=== PATIENT | male | born 1985 | race African-American/Black ===

== ENCOUNTER 2017-04-23 15:59 | Inpatient (IN) | payer MEDICAID, OTHER ==
[2017-04-23] VITALS (9 sets, daily range): BP systolic 112–138; BP diastolic 71–88; PULSE 73–92; RESP 16–20; TEMP 98.3–98.5; O2SAT 97–100
[~2017-04-23] VITALS: Ht 200.7 cm; Wt 137.5 kg
--- NOTE | 2017-04-23 16:35 | PD ---
HPI Chief Complaint: Chest Pain Time Seen by Provider: 16:10 Travel History International Travel<30 days: No Contact w/Intl Traveler<30days: No Traveled to known affect area: No History of Present Illness HPI 31 year old male presents to the emergency department for evaluation of left- sided chest pain that radiates down the left arm. Patient reports significant history including MO 5, 3 open heart surgeries, cervical fusion, chronic lymphedema of the right lower extremity. He also reports history DVT to the right lower extremity and seizures. He has history of Marfan syndrome. He is also legally blind in left eye. Apparently, once EMS arrived for evaluation of this left-sided chest pain, he then proceeded to have 2 seizures. Patient has history of epilepsy and has multiple seizures. Patient states his orthopedics pediatric physician is in [place]. Patient states the pain is pressure and sharp. He currently rates the pain 10/10. He states he cannot take aspirin and is allergic to it. He is not on anticoagulants due to seizures. Patient does state the swelling to the right lower extremity is slightly worse than normal. Patient was last MO was February 2014. He does state he had a cardiac catheterization 3 months ago at [facility]. I'll attempt to obtain the record. PFSH Past Medical History Cardiomyopathy: Yes Diminished Hearing: No Medical other: Yes (MARFANS SYNDROME) Myocardial Infarction: Yes (X5 WITH CARDIAC ARREST X2) Seizures: Yes Tetanus Vaccination: < 5 Years Influenza Vaccination: Yes Past Surgical History Cardiac Surgery: Yes (PACEMAKER AICD AROTIC VALVE ) Coronary Artery Bypass Graft: Yes (CABG X3 SX) Pacemaker: Yes Social History Alcohol Use: No Tobacco Use: No Substance Use: No Allergies-Medications (Allergen,Severity, Reaction): Coded Allergies: Iodinated Contrast- Oral and IV Dye (Verified Allergy, Severe, 04/23/17) aspirin (Verified Allergy, Severe, 04/23/17) midazolam (Verified Allergy, Severe, 04/23/17) Reported Meds & Prescriptions Reported Meds & Active Scripts Active Reported Depakote ER (Divalproex Sodium) 500 Mg Kirill 2,000 Mg PO BID Sotalol (Sotalol HCl) 120 Mg Tab 120 Mg PO BID Prilosec (Omeprazole Magnesium) 20 Mg Tab 1 Tab PO DAILY Neurontin (Gabapentin) 400 Mg Cap 400 Mg PO BID Lasix (Furosemide) 40 Mg Tab 40 Mg PO BID Flovent Hfa 10.6 GM Inh (Fluticasone Propionate) 44 Mcg/Act Inh 2 Puff INH BID Use daily at the same time. Vitamin D2 (Ergocalciferol) 2,000 Unit Tab 5,000 Units PO DAILY Cymbalta DR (Duloxetine HCl) 60 Mg Capdr 60 Mg PO DAILY Ventolin Hfa 18 GM Inh (Albuterol Sulfate) 90 Mcg/Act Aer 2 Puff INH Q4H PRN Review of Systems Except as stated in HPI: all other systems reviewed are Neg Physical Exam Narrative GENERAL: Well-nourished, well-developed male patient, afebrile. SKIN: Focused skin assessment warm/dry. Large scar noted to mid chest. HEAD: Normocephalic. Atraumatic. EYES: No scleral icterus. No injection or drainage. NECK: Supple, trachea midline. No JVD or lymphadenopathy. CARDIOVASCULAR: Regular rate and rhythm without murmurs, gallops, or rubs. RESPIRATORY: Breath sounds equal bilaterally. No accessory muscle use. Lungs sounds are diminished throughout to auscultation. GASTROINTESTINAL: Abdomen soft, non-tender, nondistended. MUSCULOSKELETAL: No cyanosis. Chronic lymphedema noted to right lower extremity. BACK: Nontender without obvious deformity. No CVA tenderness. Data Data Last Documented VS Vital Signs Date Time Temp Pulse Resp B/P (MAP) Pulse Ox O2 Delivery O2 Flow Rate FiO2 04/23/17 18:00 77 20 132/76 (94) 98 Room Air 04/23/17 16:15 98.3 Orders Orders Electrocardiogram (04/23/17 16:20) B-Type Natriuretic Peptide (04/23/17 16:20) Ckmb (Isoenzyme) Profile (04/23/17 16:20) Complete Blood Count With Diff (04/23/17 16:20) Comprehensive Metabolic Panel (04/23/17 16:20) Magnesium (Mg) (04/23/17 16:20) Prothrombin Time / Inr (Pt) (04/23/17 16:20) Act Partial Throm Time (Ptt) (04/23/17 16:20) Troponin I (04/23/17 16:20) Lipase (04/23/17 16:20) Chest, Single Ap (04/23/17 16:20) Ecg Monitoring (04/23/17 16:20) Bilateral Bp Monitoring (04/23/17 16:20) Iv Access Insert/Monitor (04/23/17 16:20) Oximetry (04/23/17 16:20) Oxygen Administration (04/23/17 16:20) Valproic Acid (Depakene) (04/23/17 16:20) Us Leg Venous Doppler (04/23/17 ) Morphine Inj (Morphine Inj) (04/23/17 16:45) Ondansetron Inj (Zofran Inj) (04/23/17 16:45) Admit Order (Ed Use Only) (04/23/17 18:08) Labs Laboratory Tests Test 04/23/17 16:45 White Blood Count 9.8 TH/MM3 Red Blood Count 4.73 MIL/MM3 Hemoglobin 14.8 GM/DL Hematocrit 42.9 % Mean Corpuscular Volume 90.7 FL Mean Corpuscular Hemoglobin 31.4 PG Mean Corpuscular Hemoglobin Concent 34.6 % Red Cell Distribution Width 14.0 % Platelet Count 252 TH/MM3 Mean Platelet Volume 7.5 FL Neutrophils (%) (Auto) 72.2 % Lymphocytes (%) (Auto) 18.9 % Monocytes (%) (Auto) 7.6 % Eosinophils (%) (Auto) 0.7 % Basophils (%) (Auto) 0.6 % Neutrophils # (Auto) 7.1 TH/MM3 Lymphocytes # (Auto) 1.8 TH/MM3 Monocytes # (Auto) 0.7 TH/MM3 Eosinophils # (Auto) 0.1 TH/MM3 Basophils # (Auto) 0.1 TH/MM3 CBC Comment DIFF FINAL Differential Comment Prothrombin Time 10.7 SEC Prothromb Time International Ratio 1.0 RATIO Activated Partial Thromboplast Time 28.3 SEC Blood Urea Nitrogen 14 MG/DL Creatinine 0.85 MG/DL Random Glucose 93 MG/DL Total Protein 7.6 GM/DL Albumin 3.7 GM/DL Calcium Level 9.2 MG/DL Magnesium Level 2.1 MG/DL Alkaline Phosphatase 72 U/L Aspartate Amino Transf (AST/SGOT) 14 U/L Alanine Aminotransferase (ALT/SGPT) 17 U/L Total Bilirubin 0.3 MG/DL Sodium Level 138 MEQ/L Potassium Level 3.6 MEQ/L Chloride Level 105 MEQ/L Carbon Dioxide Level 25.4 MEQ/L Anion Gap 8 MEQ/L Estimat Glomerular Filtration Rate 106 ML/MIN Total Creatine Kinase 75 U/L Troponin I LESS THAN 0.02 NG/ML B-Type Natriuretic Peptide 40 PG/ML Lipase 192 U/L Valproic Acid (Depakene) Level 7 MCG/ML MDM Medical Decision Making Medical Screen Exam Complete: Yes Emergency Medical Condition: Yes Medical Record Reviewed: Yes Interpretation(s) chest x-ray - CONCLUSION: 1. No acute cardiopulmonary disease. Us right leg - no evidence of DVT Differential Diagnosis ACS versus pneumonia versus pneumothorax versus DVT versus chest wall pain versus epilepsy versus electrolyte abnormality Narrative Course 31-year-old male presents to the emergency department via EMS for evaluation of left-sided chest pain. He also had seizure 2 when EMS arrived. He is now alert, oriented times person and place time. He has significant cardiac history. EKG shows sinus rhythm, heart rate 83, no acute ST changes. CBC, CMP , lipase, BNP, magnesium, CK, troponin, PTT, PT/INR, Depakote level, chest x- ray are ordered and pending. US of the right lower extremity is ordered and pending. Patient is given morphine 4 mg IV, Zofran 4 g IV for pain. CBC shows no acute abnormality. CMP shows no acute abnormality. Lipase is 192. Magnesium is 2.1. CK is 75. Troponin is less than 0.02. Coags are unremarkable. Depakote level is 7. Chest x-ray shows no acute cardiopulmonary disease. Venous doppler US of the right lower extremity is negative for DVT. Patient will be admitted for serial cardiac enzymes. Hospitalist is paged for admission. Dr. Leal accepted admission. Diagnosis Primary Impression: Chest pain Qualified Codes: R07.9 - Chest pain, unspecified Admitting Information Admitting Physician Requests: Ernestina Marin Apr 23, 2017 16:35
[2017-04-23] MEDS ORDERED: MORPHINE SULFATE 4 MG/ML INJ IV PUSH ONE ×2 (16:45→18:30)
[2017-04-23] MEDS ORDERED: ONDANSETRON HCL 4 MG/2 ML VIAL IV PUSH ONE (16:45)
--- NOTE | 2017-04-23 16:52 | RADRPT ---
EXAM DATE/TIME: 04/23/2017 16:38 [facility] COMPARISON: No previous studies available for comparison. INDICATIONS : Chest pain. MEDICAL HISTORY : Myocardial infarction. Malignancy. Marfans SURGICAL HISTORY : CABG. Pacemaker. ENCOUNTER: Initial ACUITY: 2 days PAIN SCORE: 6/10 LOCATION: Bilateral chest FINDINGS: The cardiac silhouette is enlarged in transverse diameter. A defibrillator device is in place via a l eft sided approach. Median sternotomy wires are present. A prosthetic aortic valve is in place. The l ungs are free of acute parenchymal opacity. No effusions are identified. CONCLUSION: 1. No acute cardiopulmonary disease. Marlon Soliz MD on April 23, 2017 at 16:49 Board Certified Radiologist. This report was verified electronically.
[2017-04-23 16:57] LABS: AUTOMATED NEUTROPHIL # 7.1 TH/MM3 (1.8-7.7); BASOPHIL # 0.1 TH/MM3 (0-0.2); BASOPHIL % 0.6 % (0.0-2.0); EOSINOPHIL # 0.1 TH/MM3 (0-0.4); EOSINOPHIL % 0.7 % (0.0-4.0); HEMATOCRIT 42.9 % (39.0-51.0); HEMO FLAGS DIFF FINAL; LYMPH % 18.9 % (9.0-44.0); LYMPHOCYTE # 1.8 TH/MM3 (1.0-4.8); MEAN CELL VOLUME 90.7 FL (80.0-100.0); MEAN CORPUSCULAR HEMOGLOBIN 31.4 PG (27.0-34.0); MEAN CORPUSCULAR HGB CONC 34.6 % (32.0-36.0); MONO % 7.6 % (0.0-8.0); NEUT % 72.2 % (16.0-70.0); PLATELET COUNT 252 TH/MM3 (150-450); RED BLOOD COUNT 4.73 MIL/MM3 (4.50-5.90); WHITE BLOOD COUNT 9.8 TH/MM3 (4.0-11.0)
[2017-04-23 17:08] LABS: APTT (PATIENT) 28.3 SEC (24.3-30.1); PROTHROMBIN TIME - PATIENT 10.7 SEC (9.8-11.6)
[2017-04-23 17:19] LABS: ALT (GPT) 17 U/L (12-78)
[2017-04-23 17:20] LABS: ANION GAP 8 MEQ/L (5-15); AST (GOT) 14 U/L (15-37); BICARBONATE 25.4 MEQ/L (21.0-32.0); BLOOD UREA NITROGEN 14 MG/DL (7-18); CHLORIDE 105 MEQ/L (98-107); GLOMERULAR FILTRATION RATE 106 ML/MIN (>89); MAGNESIUM 2.1 MG/DL (1.5-2.5); POTASSIUM 3.6 MEQ/L (3.5-5.1); SODIUM (NA) 138 MEQ/L (136-145)
[2017-04-23 17:22] LABS: ALKALINE PHOSPHATASE 72 U/L (45-117); TOTAL BILIRUBIN ADULT 0.3 MG/DL (0.2-1.0)
[2017-04-23 17:26] LABS: CREATINE KINASE 75 U/L (39-308)
--- NOTE | 2017-04-23 17:41 | RADRPT ---
EXAM DATE/TIME: 04/23/2017 17:07 [facility] COMPARISON: No previous studies available for comparison. INDICATIONS : Right leg swelling and pain. MEDICAL HISTORY : Myocardial infarction. Seizures. Marfan's syndrome. SURGICAL HISTORY : CABG Pacemaker. C-spine fusion. ENCOUNTER: Initial ACUITY: 1 day PAIN SCORE: 6/10 LOCATION: Right leg. TECHNIQUE: Venous ultrasound of the leg was performed from the inguinal ligament to the proximal calf. Real-kat e, color Doppler and spectral tracing, compression and augmentation techniques were used. FINDINGS: There is normal compressibility of the deep venous system from the inguinal region to the proximal ca lf. No echogenic clot is seen in the lumen of the common femoral, femoral, popliteal, and posterior tibial veins. There is a normal response of the venous system to proximal and distal augmentation an d respiration. CONCLUSION: 1. No evidence of deep venous thrombosis. Marlon Soliz MD on April 23, 2017 at 17:39 Board Certified Radiologist. This report was verified electronically.
[2017-04-23] MEDS ORDERED: PRIL20TA2 PO (18:07)
[2017-04-23] MEDS ORDERED: SOTA120T PO (18:07)
[2017-04-23] MEDS ORDERED: FURO1TAB60 PO (18:07)
[2017-04-23] MEDS ORDERED: NEUR400C PO (18:07)
[2017-04-23] MEDS ORDERED: FLUTI44I INH (18:07)
[2017-04-23] MEDS ORDERED: ERGO2000 PO (18:07)
[2017-04-23] MEDS ORDERED: CYMB60CA PO (18:07)
[2017-04-23] MEDS ORDERED: DEPA500T3 PO (18:07)
[2017-04-23] MEDS ORDERED: VENTAER INH (18:07)
[2017-04-23] MEDS ORDERED: oxyCODONE/ACETAMINOPHEN 5 MG/325 MG TAB PO PRN (19:00)
[2017-04-23] MEDS ORDERED: NALOXONE HCL 0.4 MG/ML AMP IV PUSH PRN (19:00)
[2017-04-23] MEDS ORDERED: ALPRAZolam 0.25 MG TAB PO PRN (19:00)
[2017-04-23] MEDS ORDERED: NITROGLYCERIN 0.4 MG SL 25 TABS/BTL SL PRN (19:00)
[2017-04-23] MEDS ORDERED: SENNOSIDES 8.6 MG TAB PO PRN (19:00)
[2017-04-23] MEDS ORDERED: PROCHLORPERAZINE 25 MG SUPP RECTAL PRN (19:00)
[2017-04-23] MEDS ORDERED: LACTULOSE SYRUP 20 GM/30 ML CUP PO PRN (19:00)
[2017-04-23] MEDS ORDERED: BISACODYL 10 MG SUPP RECTAL PRN (19:00)
[2017-04-23] MEDS ORDERED: MORPHINE SULFATE 4 MG/ML INJ IV PUSH PRN ×2 (19:00)
[2017-04-23] MEDS ORDERED: SODIUM CHLORIDE 0.9% FLUSH 10 ML FLUSH IV FLUSH PRN ×2 (19:00)
[2017-04-23] MEDS ORDERED: ACETAMINOPHEN 325 MG TAB PO PRN ×2 (19:00)
[2017-04-23] MEDS ORDERED: ONDANSETRON HCL 4 MG/2 ML VIAL IVP PRN (19:00)
[2017-04-23] MEDS ORDERED: MAGNESIUM HYDROXIDE SUSP 30 ML CUP PO PRN (19:00)
[2017-04-23] MEDS ORDERED: ALBUTEROL SULFATE 90 MCG/ACT HFA 18 GM INHALER INH PRN (19:15)
--- NOTE | 2017-04-23 19:21 | HHI.HP ---
[facility] [place] No Primary Care Physician Admission Diagnosis chest pain Diagnoses: (1) Chest pain Diagnosis: Principal (2) Seizure disorder Diagnosis: Secondary Chief Complaint: Chest pain Travel History International Travel<30 Days: No Contact w/Intl Traveler <30 Da: No Traveled to Known Affected Are: No History of Present Illness Patient is a 31-year-old gentleman. He presented to the emergency room for evaluation of left-sided chest pain that radiated down his left arm. Patient reported significant history including MD 5, 3 open heart surgeries, cervical fusion, chronic lymphedema of the right lower extremity. He also reports history of DVT to the right lower extremity and seizure disorder. Patient also has history of Marfan syndrome. He is also legally blind in his left eye. Once EMS arrived for evaluation of his left-sided chest pain he then proceeded to have 2 seizures. Has a history of epilepsy and has multiple seizures. 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 Patient states the pain is a pressure and sharp. It was 10 out of 10 states he cannot take aspirin and is allergic to not on any anticoagulants due to seizure.. Patient states the swelling to the right lower extremity is worse than normal. Patient states his last myocardial infarction was February 2014. Does state he had a cardiac catheterization [address] [facility] Review of Systems Constitutional: DENIES: Diaphoretic episodes, Fatigue, Fever, Weight gain, Weight loss Endocrine: DENIES: Heat/cold intolerance, Polydipsia, Polyuria, Polyphagia Eyes: COMPLAINS OF: Vision loss, DENIES: Diplopia, Eye inflammation, Eye pain Ears, nose, mouth, throat: DENIES: Tinnitus, Hearing loss, Vertigo, Nasal discharge Respiratory: DENIES: Apneas, Cough, Snoring, Wheezing Cardiovascular: COMPLAINS OF: Chest pain, Lower Extremity Edema, DENIES: Palpitations, Syncope, Dyspnea on Exertion, PND Gastrointestinal: DENIES: Abdominal pain, Black stools, Bloody stools, Constipation Genitourinary: DENIES: Sexual dysfunction, Urinary frequency, Urinary incontinence Musculoskeletal: DENIES: Joint pain, Muscle aches, Stiffness, Joint Swelling Integumentary: DENIES: Abnormal pigmentation, Nail changes Hematologic/lymphatic: DENIES: Bruising, Lymphadenopathy Immunologic/allergic: DENIES: Eczema, Urticaria Neurologic: COMPLAINS OF: Seizures, DENIES: Abnormal gait, Headache, Localized weakness, Paresthesias, Speech Problems, Tremor Psychiatric: DENIES: Anxiety, Confusion, Mood changes, Depression, Agitation Past Family Social History Past Medical History Marfan syndrome Myocardial infarction 5 with cardiac arrest 2 Seizure disorder History of pacemaker AICD and aortic valve surgery CABG 3 Past Surgical History Marfan syndrome Myocardial infarction 5 with cardiac arrest 2 Seizure disorder History of pacemaker AICD and aortic valve surgery CABG 3 Cervical spine fusion Reported Medications Reported Meds & Active Scripts Active Reported Depakote ER (Divalproex Sodium) 500 Mg Kirill 2,000 Mg PO BID Sotalol (Sotalol HCl) 120 Mg Tab 120 Mg PO BID Prilosec (Omeprazole Magnesium) 20 Mg Tab 1 Tab PO DAILY Neurontin (Gabapentin) 400 Mg Cap 400 Mg PO BID Lasix (Furosemide) 40 Mg Tab 40 Mg PO BID Flovent Hfa 10.6 GM Inh (Fluticasone Propionate) 44 Mcg/Act Inh 2 Puff INH BID Use daily at the same time. Vitamin D2 (Ergocalciferol) 2,000 Unit Tab 5,000 Units PO DAILY Cymbalta DR (Duloxetine HCl) 60 Mg Capdr 60 Mg PO DAILY Ventolin Hfa 18 GM Inh (Albuterol Sulfate) 90 Mcg/Act Aer 2 Puff INH Q4H PRN Allergies: Coded Allergies: Iodinated Contrast- Oral and IV Dye (Verified Allergy, Severe, 04/23/17) aspirin (Verified Allergy, Severe, 04/23/17) midazolam (Verified Allergy, Severe, 04/23/17) Active Ordered Medications Current Medications Morphine Sulfate (Morphine Inj) 4 mg ONCE ONCE IV PUSH Last administered on 16:55; Start 04/23/17 at 16:45; Stop 04/23/17 at 16:46; Status DC Ondansetron HCl (Zofran Inj) 4 mg ONCE ONCE IV PUSH Last administered on 04/23 16:54; Start 04/23/17 at 16:45; Stop 04/23/17 at 16:46; Status DC Morphine Sulfate (Morphine Inj) 4 mg ONCE ONCE IV PUSH Last administered on t 18:45; Start 04/23/17 at 18:30; Stop 04/23/17 at 18:31; Status DC Sodium Chloride (NS Flush) 2 ml BID IV FLUSH ; Start 04/23/17 at 21:00; Status UNV Sodium Chloride (NS Flush) 2 ml UNSCH PRN IV FLUSH FLUSH AFTER USING IV ACCESS ; Start 04/23/17 at 19:00; Status UNV Aspirin (Aspirin) 325 mg DAILY PO ; Start 04/24/17 at 09:00; Status UNV Nitroglycerin (Nitrostat Sl) 0.4 mg Q5M PRN SL ANGINA; Start 04/23/17 at 19:00 ; Status UNV Pantoprazole Sodium (Protonix) 40 mg DAILY PO ; Start 04/24/17 at 09:00; Status UNV Temazepam (Restoril) 15 mg HS PRN PO INSOMNIA; Start 04/23/17 at 21:00; Status UNV Alprazolam (Xanax) 0.25 mg TID PRN PO ANXIETY; Start 04/23/17 at 19:00; Status UNV Enoxaparin Sodium (Lovenox Inj) 40 mg Q24H SQ ; Start 04/23/17 at 19:00; Status UNV Sodium Chloride (NS Flush) 2 ml UNSCH PRN IV FLUSH FLUSH AFTER USING IV ACCESS ; Start 04/23/17 at 19:00; Status UNV Sodium Chloride (NS Flush) 2 ml BID IV FLUSH ; Start 04/23/17 at 21:00; Status UNV Acetaminophen (Tylenol) 650 mg Q4H PRN PO TEMP > 100.4; Start 04/23/17 at 19: 00; Status UNV Ondansetron HCl (Zofran Inj) 4 mg Q6H PRN IVP NAUSEA OR VOMITING; Start at 19:00; Status UNV Prochlorperazine (Compazine Supp) 25 mg Q12H PRN MD NAUSEA OR VOMITING; Start 04/23/17 at 19:00; Status UNV Acetaminophen (Tylenol) 650 mg Q6H PRN PO PAIN SCALE 1 TO 2; Start 04/23/17 at 19:00; Status UNV Oxycodone/ Acetaminophen (Percocet 5-325 Mg) 1 tab Q6H PRN PO PAIN SCALE 3 TO 5; Start 04/23/17 at 19:00; Status UNV Oxycodone/ Acetaminophen (Percocet 10-325 Mg) 1 tab Q6H PRN PO PAIN SCALE 6 TO 10; Start 04/23/17 at 19:00; Status UNV Morphine Sulfate (Morphine Inj) 2 mg Q3H PRN IV PUSH Pain 3-5; if unable to take PO; Start 04/23/17 at 19:00; Status UNV Morphine Sulfate (Morphine Inj) 4 mg Q3H PRN IV PUSH Pain 6-10;if unable to take PO; Start 04/23/17 at 19:00; Status UNV Naloxone HCl (Narcan Inj) 0.4 mg UNSCH PRN IV PUSH SEE LABEL COMMENTS; Start 04/23/17 at 19:00; Status UNV Senna/Docusate Sodium (Susanne-Colace) 1 tab BID PO ; Start 04/23/17 at 21:00; Status UNV Magnesium Hydroxide (Milk Of Magnesia Liq) 30 ml Q12H PRN PO Mild constipation ; Start 04/23/17 at 19:00; Status UNV Sennosides (Senokot) 17.2 mg Q12H PRN PO Moderate constipation; Start at 19:00; Status UNV Bisacodyl (Dulcolax Supp) 10 mg DAILY PRN RECTAL SEVERE CONSITIPATION; Start 04/23/17 at 19:00; Status UNV Lactulose (Lactulose Liq) 30 ml DAILY PRN PO SEVERE CONSITIPATION; Start 04/23 at 19:00; Status UNV Family History Marfan's syndrome Social History Denies any tobacco alcohol or illicits Physical Exam Vital Signs Vital Signs Date Time Temp Pulse Resp B/P (MAP) Pulse Ox O2 Delivery O2 Flow Rate FiO2 04/23/17 18:00 77 20 132/76 (94) 98 Room Air 04/23/17 17:00 20 04/23/17 16:56 138/88 (105) 136/81 (99) 04/23/17 16:36 20 98 Room Air 04/23/17 16:15 98.3 92 20 132/88 (103) 100 Physical Exam GENERAL: This is a well-nourished, well-developed patient, in no apparent distress. SKIN: No rashes, ecchymoses or lesions. Cool and dry. HEAD: Atraumatic. Normocephalic. No temporal or scalp tenderness. EYES: Pupils equal round and reactive. Extraocular motions intact. No scleral icterus. No injection or drainage. ENT: Nose without bleeding, purulent drainage or septal hematoma. Throat without erythema, tonsillar hypertrophy or exudate. Uvula midline. Airway patent. NECK: Trachea midline. No JVD or lymphadenopathy. Supple, nontender, no meningeal signs. CARDIOVASCULAR: Regular rate and rhythm without murmurs, gallops, or rubs. RESPIRATORY: Clear to auscultation. Breath sounds equal bilaterally. No wheezes , rales, or rhonchi. GASTROINTESTINAL: Abdomen soft, non-tender, nondistended. No hepato-splenomegaly , or palpable masses. No guarding. MUSCULOSKELETAL: Extremities without clubbing, cyanosis, or edema. No joint tenderness, effusion, or edema noted. No calf tenderness. Negative Homans sign bilaterally. NEUROLOGICAL: Awake and alert. Cranial nerves II through XII intact. Motor and sensory grossly within normal limits. Five out of 5 muscle strength in all muscle groups. Normal speech. Laboratory Laboratory Tests Test 04/23/17 16:45 White Blood Count 9.8 Red Blood Count 4.73 Hemoglobin 14.8 Hematocrit 42.9 Mean Corpuscular Volume 90.7 Mean Corpuscular Hemoglobin 31.4 Mean Corpuscular Hemoglobin Concent 34.6 Red Cell Distribution Width 14.0 Platelet Count 252 Mean Platelet Volume 7.5 Neutrophils (%) (Auto) 72.2 Lymphocytes (%) (Auto) 18.9 Monocytes (%) (Auto) 7.6 Eosinophils (%) (Auto) 0.7 Basophils (%) (Auto) 0.6 Neutrophils # (Auto) 7.1 Lymphocytes # (Auto) 1.8 Monocytes # (Auto) 0.7 Eosinophils # (Auto) 0.1 Basophils # (Auto) 0.1 CBC Comment DIFF FINAL Differential Comment Prothrombin Time 10.7 Prothromb Time International Ratio 1.0 Activated Partial Thromboplast Time 28.3 Blood Urea Nitrogen 14 Creatinine 0.85 Random Glucose 93 Total Protein 7.6 Albumin 3.7 Calcium Level 9.2 Magnesium Level 2.1 Alkaline Phosphatase 72 Aspartate Amino Transf (AST/SGOT) 14 Alanine Aminotransferase (ALT/SGPT) 17 Total Bilirubin 0.3 Sodium Level 138 Potassium Level 3.6 Chloride Level 105 Carbon Dioxide Level 25.4 Anion Gap 8 Estimat Glomerular Filtration Rate 106 Total Creatine Kinase 75 Troponin I LESS THAN 0.02 B-Type Natriuretic Peptide 40 Lipase 192 Valproic Acid (Depakene) Level 7 Result Diagram: 04/23/17 1645 04/23/17 1645 Imaging Chest, Single AP Signed EXAM DATE/TIME: 04/23/2017 16:38 [facility] COMPARISON: No previous studies available for comparison. INDICATIONS : Chest pain. MEDICAL HISTORY : Myocardial infarction. Malignancy. Marfans SURGICAL HISTORY : CABG. Pacemaker. ENCOUNTER: Initial ACUITY: 2 days PAIN SCORE: 6/10 LOCATION: Bilateral chest FINDINGS: The cardiac silhouette is enlarged in transverse diameter. A defibrillator device is in place via a left sided approach. Median sternotomy wires are present. A prosthetic aortic valve is in place. The lungs are free of acute parenchymal opacity. No effusions are identified. CONCLUSION: 1. No acute cardiopulmonary disease. EXAM DATE/TIME: 04/23/2017 17:07 [facility] COMPARISON: No previous studies available for comparison. INDICATIONS : Right leg swelling and pain. MEDICAL HISTORY : Myocardial infarction. Seizures. Marfan's syndrome. SURGICAL HISTORY : CABG Pacemaker. C-spine fusion. ENCOUNTER: Initial ACUITY: 1 day PAIN SCORE: 6/10 LOCATION: Right leg. TECHNIQUE: Venous ultrasound of the leg was performed from the inguinal ligament to the proximal calf. Real-time, color Doppler and spectral tracing, compression and augmentation techniques were used. FINDINGS: There is normal compressibility of the deep venous system from the inguinal region to the proximal calf. No echogenic clot is seen in the lumen of the common femoral, femoral, popliteal, and posterior tibial veins. There is a normal response of the venous system to proximal and distal augmentation and respiration. CONCLUSION: 1. No evidence of deep venous thrombosis. Caprini VTE Risk Assessment Caprini VTE Risk Assessment: Mod/High Risk (score >= 2) Caprini Risk Assessment Model Point Value = 1 Point Value = 2 Point Value = 3 Point Value = 5 Age 41-60 Minor surgery BMI > 25 kg/m2 Swollen legs Varicose veins or History of unexplained or recurrent spontaneous Oral contraceptives or hormone replacement Sepsis (< 1 month) Serious lung disease, including pneumonia (< 1 month) Abnormal pulmonary function Acute myocardial infarction Congestive heart failure (< 1 month) History of inflammatory bowel disease Medical patient at bed rest Age 61-74 Arthroscopic surgery Major open surgery (> 45 min) Laparoscopic surgery (> 45 min) Malignancy Confined to bed (> 72 hours) Immobilizing plaster cast Central venous access Age >= 75 History of VTE Family history of VTE Factor V Leiden Prothrombin [id number] Lupus anticoagulant Anticardiolipin antibodies Elevated serum homocysteine Heparin-induced thrombocytopenia Other congenital or acquired thrombophilia Stroke (< 1 month) Elective arthroplasty Hip, pelvis, or leg fracture Acute spinal cord injury (< 1 month) Prophylaxis Regimen Total Risk Factor Score Risk Level Prophylaxis Regimen 0-1 Low Early ambulation 2 Moderate Order ONE of the following: *Sequential Compression Device (SCD) *Heparin 5000 units SQ BID 3-4 Higher Order ONE of the following medications: *Heparin 5000 units SQ TID *Enoxaparin/Lovenox 40 mg SQ daily (WT < 150 kg, CrCl > 30 mL/min) *Enoxaparin/Lovenox 30 mg SQ daily (WT < 150 kg, CrCl > 10-29 mL/min) *Enoxaparin/Lovenox 30 mg SQ BID (WT < 150 kg, CrCl > 30 mL/min) AND/OR *Sequential Compression Device (SCD) 5 or more Highest Order ONE of the following medications: *Heparin 5000 units SQ TID (Preferred with Epidurals) *Enoxaparin/Lovenox 40 mg SQ daily (WT < 150 kg, CrCl > 30 mL/min) *Enoxaparin/Lovenox 30 mg SQ daily (WT < 150 kg, CrCl > 10-29 mL/min) *Enoxaparin/Lovenox 30 mg SQ BID (WT < 150 kg, CrCl > 30 mL/min) AND *Sequential Compression Device (SCD) Assessment and Plan Assessment and Plan Chest pain we'll trend troponins cardiac enzymes and echocardiogram consult cardiology Marfan syndrome status post multiple cardiac surgeries multiple MIs pacemaker Seizure disorder continue home medications Pain and depression continue home medications Pain control for the chest pain Depression continue on home medications Neuropathy continue on home medications Cardiac diet GERD continue on PPI History of cervical surgery Activity as tolerated GI and DVT prophylaxis Lovenox and PPI No aspirin allergy Code Status Full code Discussed Condition With Emergency room and RN and patient Problem Qualifiers (1) Chest pain: Qualified Codes: R07.9 - Chest pain, unspecified Enmanuel Leal DO Apr 23, 2017 19:21
[2017-04-23] MEDS ORDERED: ENOXAPARIN SODIUM 40 MG/0.4 ML SYRINGE SQ SCH (20:00)
[2017-04-23 20:04] LABS: MAGNESIUM 2.3 MG/DL (1.5-2.5)
[2017-04-23 20:09] LABS: CREATINE KINASE 72 U/L (39-308)
[2017-04-23 20:57] LABS: BLOOD, URINE NEG (NEG); GLUCOSE,URINE NEG (NEG); KETONE, URINE NEG (NEG); NITRITE,URINE NEG (NEG); URINE COLOR YELLOW (YELLW/STRAW)
[2017-04-23] MEDS: oxyCODONE/ACETAMINOPHEN 10 MG/325 MG TAB PO PRN (20:57)
[2017-04-23] MEDS: SODIUM CHLORIDE 0.9% FLUSH 10 ML FLUSH IV FLUSH SCH (21:00)
[2017-04-23] MEDS ORDERED: SODIUM CHLORIDE 0.9% FLUSH 10 ML FLUSH IV FLUSH SCH (21:00)
[2017-04-23] MEDS ORDERED: TEMAZEPAM 15 MG CAP PO PRN (21:00)
[2017-04-23 21:02] LABS: COMMENT (UR) CULT NOT INDICATED; CULTURE IF INDICATED CULT NOT INDICATED
[2017-04-23] MEDS: DIVALPROEX SODIUM E.R. 500 MG TAB PO SCH (22:22)
[2017-04-23] MEDS: DOCUSATE SODIUM 50 MG/SENNA 8.6 MG TAB PO SCH (22:22)
[2017-04-23] MEDS: FUROSEMIDE 40 MG TAB PO SCH (22:23)
[2017-04-23] MEDS: GABAPENTIN 400 MG CAP PO SCH (22:23)
[2017-04-23] MEDS: FLUTICASONE PROPIONATE 44 MCG/ACT 10.6 GM INHALER INH SCH (23:06)
[2017-04-23] MEDS: SOTALOL HCL 80 MG TAB PO SCH (23:06)
[2017-04-24] VITALS (10 sets, daily range): BP systolic 106–120; BP diastolic 68–80; PULSE 56–80; RESP 15–20; TEMP 96.1–98.1; O2SAT 93–100
[2017-04-24] MEDS: LORazepam 2 MG/ML VIAL IV PUSH PRN ×3 (00:34→08:20)
--- NOTE | 2017-04-24 01:32 | HHI.PR ---
Addendum to Inpatient Note Addendum Reason: Additional Documentation Additional Information Bisit was called on patient for apparent seizure. Prior to halicat RN called and stated patient had a seizure and no ativan was prescribed. Ativan order was given and bisit was called because patient was found foaming at the mouth. Upon arrival to room Patient was being suctioned and then woke up. Per RN she said service dog was going in circles and the patient pushed the call light while having a seizure. Pseudoseizure vs tonic clonic -Due to history of seizure disorder will consult neurology and Ativan Cecilia Lopez Apr 24, 2017 01:32
[2017-04-24 02:20] LABS: CREATINE KINASE 70 U/L (39-308)
[2017-04-24] MEDS: oxyCODONE/ACETAMINOPHEN 10 MG/325 MG TAB PO PRN (06:24)
[2017-04-24] MEDS: FLUTICASONE PROPIONATE 44 MCG/ACT 10.6 GM INHALER INH SCH ×2 (08:05→21:47)
[2017-04-24] MEDS: SOTALOL HCL 80 MG TAB PO SCH ×2 (08:08→21:49)
[2017-04-24] MEDS: DIVALPROEX SODIUM E.R. 500 MG TAB PO SCH ×2 (08:08→21:50)
[2017-04-24] MEDS: DULoxetine HCl DR 60 MG CAP PO SCH (08:08)
[2017-04-24] MEDS: DOCUSATE SODIUM 50 MG/SENNA 8.6 MG TAB PO SCH ×2 (08:09→21:52)
[2017-04-24] MEDS: GABAPENTIN 400 MG CAP PO SCH ×2 (08:09→21:51)
[2017-04-24] MEDS: FUROSEMIDE 40 MG TAB PO SCH ×2 (08:10→21:00)
[2017-04-24] MEDS: SODIUM CHLORIDE 0.9% FLUSH 10 ML FLUSH IV FLUSH SCH ×2 (08:10→21:48)
[2017-04-24] MEDS: ERGOCALCIFEROL 5000 UNIT PO SCH (08:10)
[2017-04-24 08:29] LABS: AUTOMATED NEUTROPHIL # 4.2 TH/MM3 (1.8-7.7); BASOPHIL % 0.6 % (0.0-2.0); EOSINOPHIL # 0.1 TH/MM3 (0-0.4); EOSINOPHIL % 1.4 % (0.0-4.0); HEMATOCRIT 40.6 % (39.0-51.0); HEMO FLAGS DIFF FINAL; LYMPH % 27.1 % (9.0-44.0); MEAN CORPUSCULAR HEMOGLOBIN 31.4 PG (27.0-34.0); MEAN CORPUSCULAR HGB CONC 34.5 % (32.0-36.0); MONO % 12.7 % (0.0-8.0); NEUT % 58.2 % (16.0-70.0); PLATELET COUNT 232 TH/MM3 (150-450); RED BLOOD COUNT 4.46 MIL/MM3 (4.50-5.90); RED CELL DISTRIBUTION WIDTH 14.3 % (11.6-17.2); WHITE BLOOD COUNT 7.3 TH/MM3 (4.0-11.0)
[2017-04-24] MEDS ORDERED: VALPROATE INJ 500 MG in SODIUM CHLORIDE 0.9% INJ 100 ML IV ONE (08:30)
[2017-04-24 08:55] LABS: ALT (GPT) 14 U/L (12-78); ANION GAP 9 MEQ/L (5-15); AST (GOT) 9 U/L (15-37); BICARBONATE 26.2 MEQ/L (21.0-32.0); BLOOD UREA NITROGEN 13 MG/DL (7-18); CHLORIDE 104 MEQ/L (98-107); GLOMERULAR FILTRATION RATE 114 ML/MIN (>89); MAGNESIUM 2.2 MG/DL (1.5-2.5); POTASSIUM 4.1 MEQ/L (3.5-5.1); SODIUM (NA) 139 MEQ/L (136-145)
[2017-04-24] MEDS ORDERED: PANTOPRAZOLE SOD 20 MG DELAYED RELEASE TAB PO SCH (09:00)
[2017-04-24] MEDS ORDERED: PANTOPRAZOLE SOD 40 MG DELAYED RELEASE TAB PO SCH (09:00)
[2017-04-24] MEDS ORDERED: ASPIRIN 325 MG TAB PO SCH (09:00)
[2017-04-24] MEDS ORDERED: PNEUMOCOCCAL POLYVALENT INJ 25 MCG/0.5 ML SYR IM ONE (09:00)
[2017-04-24 09:04] LABS: ALKALINE PHOSPHATASE 63 U/L (45-117); FREE T4 1.19 NG/DL (0.76-1.46); HDL CHOLESTEROL 40.5 MG/DL (40.0-60.0); LDL CHOLESTEROL 137 MG/DL (0-99); TOTAL BILIRUBIN ADULT 0.3 MG/DL (0.2-1.0)
[2017-04-24] MEDS ORDERED: CHLORHEXIDINE GLUCONATE 2 % 1 PACK (2 CLOTHS)(extra cloths) TOPICAL PRN (09:15)
[2017-04-24] MEDS ORDERED: MAGNESIUM SULFATE INJ 4 GM in SODIUM CHLORIDE 0.9% INJ 92 ML IV PRN (09:45)
[2017-04-24] MEDS ORDERED: POTASSIUM PHOSPHATE INJ 30 MMOL in SODIUM CHLOR 0.9% 250 ML INJ 250 ML IV PRN (09:45)
[2017-04-24] MEDS ORDERED: CHLORHEXIDINE GLUCONATE 2 % 1 PACK (2 CLOTHS) TOP PRN (09:45)
[2017-04-24] MEDS ORDERED: POTASSIUM CHLORIDE 25 MEQ EFFERVESCENT TAB PO PRN (09:45)
[2017-04-24] MEDS ORDERED: POTASSIUM CHLOR 20 MEQ PREMIX 100 ML IV PRN ×2 (09:45)
[2017-04-24] MEDS ORDERED: SODIUM CHLORIDE 0.9% FLUSH 10 ML FLUSH IV FLUSH PRN (09:45)
[2017-04-24] MEDS ORDERED: ACETAMINOPHEN 325 MG TAB PO PRN (09:45)
[2017-04-24] MEDS ORDERED: POTASSIUM PHOSPHATE MONOBASIC 500 MG TAB PO PRN (09:45)
[2017-04-24] MEDS ORDERED: LACTULOSE SYRUP 20 GM/30 ML CUP PO PRN (09:45)
[2017-04-24] MEDS ORDERED: MAGNESIUM OXIDE 400 MG TAB PO PRN (09:45)
[2017-04-24] MEDS ORDERED: POTASSIUM CHLOR 40 MEQ PREMIX 100 ML IV PRN ×2 (09:45)
[2017-04-24] MEDS ORDERED: MISCELLANEOUS NURSING INFORMATION XX SCH (09:45)
[2017-04-24] MEDS ORDERED: SODIUM PHOSPHATE INJ 30 MMOL in SODIUM CHLOR 0.9% 250 ML INJ 240 ML IV PRN (09:45)
[2017-04-24] MEDS ORDERED: SENNOSIDES 8.6 MG TAB PO PRN (09:45)
[2017-04-24] MEDS ORDERED: MAGNESIUM SULFATE INJ 2 GM in SODIUM CHLORIDE 0.9% INJ 96 ML IV PRN (09:45)
[2017-04-24] MEDS ORDERED: POTASSIUM PHOSPHATE MONOBASIC 500 MG TAB PO/TUBE PRN (09:45)
--- NOTE | 2017-04-24 11:08 | PD.CONS ---
HPI Service Critical Care Medicine Consult Requested By Dr. Lucas, [facility] Reason for Consult Seizure disorder Primary Care Physician No Primary Care Physician History of Present Illness This is a 31-year-old male that presented last evening in the ED with seizure disorder. Overnight he received approximately 3 mg of Ativan, this a.m., the patient was a a rapid response, Halicat for continuous seizing , questionable status epilepticus. Records were obtained from the [facility] in [place], that accompanied the patient. The patient has a past medical history that is significant for Marfan syndrome, pseudoseizures vs. seizures, PTSD, chronic pain syndrome, valve sparing aortic root replacement with a 26 mm Valsalva graft on 06/01/2009, aortic valve repair (commissuroplasty) and a ascending aortic replacement in September 2013, AVR with 25 mm Bovine valve, paroxysmal atrial fib and cardiac arrest (V. fib (on 03/08 2014 requiring placement of of Medtronic dual-chamber ICD on 04/01/2014. The device was last interrogated 3 months ago. The patient has previous bouts of chest pain/pressure and has been seen and followed at [facility] and takes SL NTG, PRN. Notably the patient has had excessive radiation exposure were greater than 100 CT scans in the last 2-3 years. Patient 's functional status is limited to a motored wheelchair. The patient was emergently transferred to ICU and critical care medicine was consulted. Review of Systems ROS Limitations: Clinical Condition ( lethargic, 12 point review of systems done with patient and negative except for pertinent positives mentioned in the history and physical) Past Family Social History Allergies: Coded Allergies: Iodinated Contrast- Oral and IV Dye (Verified Allergy, Severe, 04/23/17) aspirin (Verified Allergy, Severe, 04/23/17) midazolam (Verified Allergy, Severe, 04/23/17) Past Medical History Marfan syndrome, aortic insufficiency, aortic root dilatation and aortic aneurysm, asthma, history of atrial fib, cardiac arrest 03/08/2014, GA, OCD, history of pneumothorax 5, PTSD, status post aortic valve repair with aortic root replacement and reconstruction 2008, aortic valve replacement 09/2014, scoliosis, seizures versus pseudoseizures, Tourette's disease Past Surgical History Aortic surgery, spinal surgery, cervical fusion, left eye surgery, cardiac surgery, cardiac AICD placement, appendectomy, cardiac pacemaker placement 2013 Reported Medications see MAR Active Ordered Medications see MAR Family History Unable to test obtain secondary to patient's lethargic state Social History History of smoking 1 year, denies EtOH or illicit drug use Physical Exam Vital Signs Vital Signs Date Time Temp Pulse Resp B/P (MAP) Pulse Ox O2 Delivery O2 Flow Rate FiO2 04/24/17 08:22 100 2.00 04/24/17 08:21 100 Nasal Cannula 2.00 04/24/17 03:33 96.1 68 20 108/69 (82) 93 04/24/17 00:28 98 2.00 04/24/17 00:28 98 Nasal Cannula 2.00 04/23/17 23:45 98.5 73 17 112/71 (85) 97 04/23/17 23:00 98 04/23/17 22:05 18 04/23/17 20:51 98.4 74 16 131/80 (97) 98 04/23/17 20:00 98 04/23/17 19:45 04/23/17 19:00 83 18 127/78 (94) 98 Room Air 04/23/17 18:00 77 20 132/76 (94) 98 Room Air 04/23/17 17:00 20 04/23/17 16:56 138/88 (105) 136/81 (99) 04/23/17 16:36 20 98 Room Air 04/23/17 16:15 98.3 92 20 132/88 (103) 100 Physical Exam GENERAL: Thin appearing, lethargic male in no apparent distress , lethargic SKIN: Warm and dry. HEAD: Atraumatic. Normocephalic. EYES: Pupils equal and round. No scleral icterus. No injection or drainage. ENT: No nasal bleeding or discharge. Mucous membranes pink and moist. NECK: Trachea midline. No JVD. CARDIOVASCULAR: Normal rate, regular rhythm. RESPIRATORY: No accessory muscle use. Clear to auscultation. Breath sounds equal bilaterally. GASTROINTESTINAL: Abdomen soft, non-tender, nondistended. No guarding. MUSCULOSKELETAL: Extremities without clubbing, cyanosis. Edematous left lower extremity NEUROLOGICAL: Lethargic. RASS 0. No gross focal/sensory deficits. Follows commands in all 4 extremities. Laboratory Laboratory Tests Test 04/23/17 16:45 04/23/17 19:25 04/23/17 20:10 04/24/17 01:20 White Blood Count 9.8 Red Blood Count 4.73 Hemoglobin 14.8 Hematocrit 42.9 Mean Corpuscular Volume 90.7 Mean Corpuscular Hemoglobin 31.4 Mean Corpuscular Hemoglobin Concent 34.6 Red Cell Distribution Width 14.0 Platelet Count 252 Mean Platelet Volume 7.5 Neutrophils (%) (Auto) 72.2 Lymphocytes (%) (Auto) 18.9 Monocytes (%) (Auto) 7.6 Eosinophils (%) (Auto) 0.7 Basophils (%) (Auto) 0.6 Neutrophils # (Auto) 7.1 Lymphocytes # (Auto) 1.8 Monocytes # (Auto) 0.7 Eosinophils # (Auto) 0.1 Basophils # (Auto) 0.1 CBC Comment DIFF FINAL Differential Comment Prothrombin Time 10.7 Prothromb Time International Ratio 1.0 Activated Partial Thromboplast Time 28.3 Blood Urea Nitrogen 14 Creatinine 0.85 Random Glucose 93 Total Protein 7.6 Albumin 3.7 Calcium Level 9.2 Magnesium Level 2.1 2.3 Alkaline Phosphatase 72 Aspartate Amino Transf (AST/SGOT) 14 Alanine Aminotransferase (ALT/SGPT) 17 Total Bilirubin 0.3 Sodium Level 138 Potassium Level 3.6 Chloride Level 105 Carbon Dioxide Level 25.4 Anion Gap 8 Estimat Glomerular Filtration Rate 106 Total Creatine Kinase 75 72 70 Troponin I LESS THAN 0.02 LESS THAN 0.02 LESS THAN 0.02 B-Type Natriuretic Peptide 40 Lipase 192 Valproic Acid (Depakene) Level 7 Urine Color YELLOW Urine Turbidity CLEAR Urine pH 6.0 Urine Specific [place] 1.020 Urine Protein NEG Urine Glucose (UA) NEG Urine Ketones NEG Urine Occult Blood NEG Urine Nitrite NEG Urine Bilirubin NEG Urine Urobilinogen 2.0 Urine Leukocyte Esterase NEG Urine RBC LESS THAN 1 Urine WBC LESS THAN 1 Microscopic Urinalysis Comment CULT NOT INDICATED Test 04/24/17 08:17 White Blood Count 7.3 Red Blood Count 4.46 Hemoglobin 14.0 Hematocrit 40.6 Mean Corpuscular Volume 91.0 Mean Corpuscular Hemoglobin 31.4 Mean Corpuscular Hemoglobin Concent 34.5 Red Cell Distribution Width 14.3 Platelet Count 232 Mean Platelet Volume 7.3 Neutrophils (%) (Auto) 58.2 Lymphocytes (%) (Auto) 27.1 Monocytes (%) (Auto) 12.7 Eosinophils (%) (Auto) 1.4 Basophils (%) (Auto) 0.6 Neutrophils # (Auto) 4.2 Lymphocytes # (Auto) 2.0 Monocytes # (Auto) 0.9 Eosinophils # (Auto) 0.1 Basophils # (Auto) 0.0 CBC Comment DIFF FINAL Differential Comment Blood Urea Nitrogen 13 Creatinine 0.94 Random Glucose 86 Total Protein 6.9 Albumin 3.3 Calcium Level 8.7 Phosphorus Level 4.0 Magnesium Level 2.2 Alkaline Phosphatase 63 Aspartate Amino Transf (AST/SGOT) 9 Alanine Aminotransferase (ALT/SGPT) 14 Total Bilirubin 0.3 Sodium Level 139 Potassium Level 4.1 Chloride Level 104 Carbon Dioxide Level 26.2 Anion Gap 9 Estimat Glomerular Filtration Rate 114 Triglycerides Level 130 Cholesterol Level 203 LDL Cholesterol 137 HDL Cholesterol 40.5 Cholesterol/HDL Ratio 5.01 Free Thyroxine 1.19 Thyroid Stimulating Hormone 3rd Gen 3.110 Result Diagram: 04/24/17 0817 04/24/17 0817 Imaging Last Impressions Chest X-Ray 04/23/17 1620 Signed Impressions: Service Date/Time: Sunday, April 23, 2017 16:38 - CONCLUSION: 1. No acute cardiopulmonary disease. Marlon Soliz MD Lower Extremity Ultrasound 04/23/17 0000 Signed Impressions: Service Date/Time: Sunday, April 23, 2017 17:07 - CONCLUSION: 1. No evidence of deep venous thrombosis. Marlon Soliz MD Septic Shock Reassessment Heart: Regular rate and rhythm Lungs: Clear Skin: Warm Peripheral Pulses: Bounding Right Radial Bounding Left Radial Assessment and Plan Assessment and Plan ASSESSMENT This is a 31-year-old male transferred to ICU for continuous seizures, currently patient is lethargic, postictal?, but responsive to commands. No recent seizure activity upon admission to ICU, Dr. Crow consulted. Hemodynamic stable. Plan for downgrading to [facility] and transferred to floor. Seizure vs. pseudoseizure Conversion Disorder PTSD OCD Chronic pain syndrome Blindness left eye Marfan syndrome History of cardiac arrest History of GA x 5 AICD/pacemaker placement 2014 PTX x 5 Asthma S/P Valve sparing aortic root placement Angina Chronic lymphedema RLE PLAN Neurologic: Neurochecks per ICU protocol Neurology consulted - Home meds include Depakote currently level subtherapeutic EEG in process follow-up results Continue antiepileptic medications previously discussed prescribing EEG 10/2016-nonepileptic seizures. None recorded for the last 7-10 years followed by neurology Y[place] Patient currently lethargic, postictal? Avoid IV narcotics-and continue patient's home medications Respiratory: Maintain O2 sat greater than 92% Duo nebs every 6 hours schedule every 2 hours when necessary Cardiovascular: Echo- 10/19/16 compared with study 08/15/2016 ([facility]) Probably no significant change. Normal left ventricular size. Normal left ventricular systolic function (EF 60-65%). No left ventricle regional wall motion abnormalities. Normal right ventricular size and systolic function. Prolapse of the anterior and posterior mitral leaflets. Mitral regurg probably mild. Prosthetic aortic valve with mild perivalvular regurgitation . LHC- 10/20/2016-normal coronaries per report [facility] Continue NTG SL PRN EKG- SR Troponins negative 3 Renal: -- Strict I/Os FEN/GI: Maintain NPO status Continue Protonix IV-patient's home medication Heme/ID: Monitor CBC Obtain cultures if clinically indicated Endocrine: Glucose monitoring per ICU protocol -- SSI Prophylaxis: GI Prophylaxis Protonix IV, will switch to PO dosing when patient passes bedside swallow DVT Prophylaxis -- SCDs Heparin 5000 SQ twice a day Lines: Peripheral IVs providing adequate access Dispo: The patient has had multiple recent hospital admissions for pseudoseizures versus seizures and chest pain/chronic pain.06/2016, and 07/2016,10/2016,12/2016 ,03/2017x 3 admissions, last admission in 03/20/2017 CCT: 60 mins Code Status Full Discussed Condition With Patient, DRAFTER CASTINGS and Josefina Bran MD Apr 24, 2017 11:08
--- NOTE | 2017-04-24 11:24 | PD.CONS ---
HPI Consult Requested By Primary Care Physician No Primary Care Physician History of Present Illness 31 y/o M with pmhx significant for Marfan Syndrome, aortic valve replacement with a bioprosthesis, aortic aneurysm repair, atrial fibrillation, s/p AICD and seizures vs pseudoseizures, conversion disorder, right leg lymphedema that presented to the ER for evaluation of left sided chest pain. He reports chest pain start on his back and radiates to the left sided of chest and down his left arm. Apparently he had a ?seizures while being evaluated by EMS. He follows at [facility]. Recent [facility] 10/24/16 negative for ischemia. Cardiology consulted for chest pain evaluation. Cardiac markers unremarkable. No acute ST changes on EKG. Review of Systems Consitutional: DENIES: Fatigue, Fever, Chills, Weight gain, Weight loss Eyes: DENIES: Amaurosis Fugax, Change in vision HEENT: DENIES: Lightheadedness, Change in hearing Respiratory: DENIES: See HPI, Cough, Snoring, Shortness of breath, Wheezing, Sputum production Cardiovascular: COMPLAINS OF: Chest pain Gastrointestinal: DENIES: Nausea, Vomiting, Change in bowel habits, Reflux, Bloody stools, Melena Genitourinary: DENIES: Urinary incontinence, Difficulty voiding Integumentary: DENIES: Rash Neurologic: DENIES: Tingling or numbness, Memory problems, Poor Balance, Stroke symptoms Musculoskeletal: DENIES: Joint pain, Muscle pain, Limited range of motion, Back pain Psychiatric: DENIES: Anxiety, Depression, Sleep disturbances Hematologic: DENIES: Bruising tendencies, Bleeding tendencies Endocrine: DENIES: Weight gain, Weight loss, Thyroid disease Past Family Social History Allergies: Coded Allergies: Iodinated Contrast- Oral and IV Dye (Verified Allergy, Severe, 04/23/17) aspirin (Verified Allergy, Severe, 04/23/17) midazolam (Verified Allergy, Severe, 04/23/17) Past Medical History Marfan syndrome Myocardial infarction 5 with cardiac arrest 2 Seizure disorder History of pacemaker AICD and aortic valve surgery CABG 3 Past Surgical History Marfan syndrome Myocardial infarction 5 with cardiac arrest 2 Seizure disorder History of pacemaker AICD and aortic valve surgery CABG 3 Cervical spine fusion Reported Medications Reported Meds & Active Scripts Active Reported Depakote ER (Divalproex Sodium) 500 Mg Kirill 2,000 Mg PO BID Sotalol (Sotalol HCl) 120 Mg Tab 120 Mg PO BID Prilosec (Omeprazole Magnesium) 20 Mg Tab 1 Tab PO DAILY Neurontin (Gabapentin) 400 Mg Cap 400 Mg PO BID Lasix (Furosemide) 40 Mg Tab 40 Mg PO BID Flovent Hfa 10.6 GM Inh (Fluticasone Propionate) 44 Mcg/Act Inh 2 Puff INH BID Use daily at the same time. Vitamin D2 (Ergocalciferol) 2,000 Unit Tab 5,000 Units PO DAILY Cymbalta DR (Duloxetine HCl) 60 Mg Capdr 60 Mg PO DAILY Ventolin Hfa 18 GM Inh (Albuterol Sulfate) 90 Mcg/Act Aer 2 Puff INH Q4H PRN Active Ordered Medications Current Medications Medications (Trade) Dose Ordered Sig/Vamsi Route Start Time Stop Time Status Last Admin (Nitrostat Sl) 0.4 mg Q5M PRN SL 04/23/17 19:00 (Restoril) 15 mg HS PRN PO 04/23/17 21:00 (Xanax) 0.25 mg TID PRN PO 04/23/17 19:00 (NS Flush) 2 ml UNSCH PRN IV FLUSH 04/23/17 19:00 (NS Flush) 2 ml BID IV FLUSH 04/23/17 21:00 04/24/17 08:10 (Compazine Supp) 25 mg Q12H PRN RECTAL 04/23/17 19:00 (Percocet 5-325 Mg) 1 tab Q6H PRN PO 04/23/17 19:00 (Percocet 10-325 Mg) 1 tab Q6H PRN PO 04/23/17 19:00 04/24/17 06:24 (Narcan Inj) 0.4 mg UNSCH PRN IV PUSH 04/23/17 19:00 (Susanne-Colace) 1 tab BID PO 04/23/17 21:00 04/24/17 08:09 (Milk Of Magnesia Liq) 30 ml Q12H PRN PO 04/23/17 19:00 (Senokot) 17.2 mg Q12H PRN PO 04/23/17 19:00 (Lactulose Liq) 30 ml DAILY PRN PO 04/23/17 19:00 (Depakote Er) 2,000 mg BID PO 04/23/17 21:00 04/24/17 08:08 (Cymbalta Dr) 60 mg DAILY PO 04/24/17 09:00 04/24/17 08:08 (Flovent Hfa 44 Mcg Inh) 2 puff BID INH 04/23/17 21:00 04/24/17 08:05 (Lasix) 40 mg BID PO 04/23/17 21:00 04/24/17 08:10 (Neurontin) 400 mg BID PO 04/23/17 21:00 04/24/17 08:09 Patient Own Medication PT OWN MED: Ergocalciferol (Vitamin ... DAILY PO 04/24/17 09:00 (Betapace) 120 mg BID PO 04/23/17 21:00 04/24/17 08:08 (Ativan Inj) 1 mg Q15M PRN IV PUSH 04/24/17 00:30 04/24/17 08:20 Miscellaneous Information Patient in critical care unit? Ass... Q361D .XX 04/24/17 09:15 (Chlorhexidine 2% Cloth) 3 pack DAILY@04 TOPICAL 04/25/17 04:00 04/29/17 04:01 (Chlorhexidine 2% Cloth) 3 pack UNSCH PRN TOPICAL 04/24/17 09:15 04/29/17 09:07 Sodium Chloride 1,000 ml @ 84 mls/hr [id number] IV 04/24/17 09:38 UNV (NS Flush) 2 ml BID IV FLUSH 04/24/17 21:00 UNV (Tylenol) 650 mg Q6H PRN PO 04/24/17 09:45 UNV (Pepcid Inj) 20 mg Q12HR IV PUSH 04/24/17 21:00 (Zofran Inj) 4 mg Q6H PRN IV PUSH 04/24/17 09:45 UNV (Duoneb Neb) 1 ampule Q4HR NEB PRN INH 04/24/17 09:45 UNV (Heparin Inj) 5,000 units Q12H SQ 04/24/17 09:45 UNV Miscellaneous Information 1 Q361D XX 04/24/17 09:45 UNV (Chlorhexidine 2% Cloth) 3 pack Taper DAILY@04 TOP 04/25/17 04:00 04/21/18 03:59 UNV (Chlorhexidine 2% Cloth) 3 pack UNSCH PRN TOP 04/24/17 09:45 UNV (Susanne-Colace) 1 tab BID PO 04/24/17 21:00 UNV (Milk Of Magnesia Liq) 30 ml Q12H PRN PO 04/24/17 09:45 UNV (Dulcolax Supp) 10 mg DAILY PRN RECTAL 04/24/17 09:45 UNV Potassium Chloride 100 ml @ 50 mls/hr Q2H PRN IV 04/24/17 09:45 Potassium Chloride 100 ml @ 50 mls/hr Q2H PRN IV 04/24/17 09:45 (K-Lyte Cl Eff) 50 meq UNSCH PRN PO 04/24/17 09:45 Potassium Chloride 100 ml @ 25 mls/hr UNSCH PRN IV 04/24/17 09:45 Potassium Chloride 100 ml @ 50 mls/hr Q2H PRN IV 04/24/17 09:45 Magnesium Sulfate 4 gm/Sodium Chloride 100 ml @ 50 mls/hr UNSCH PRN IV 04/24/17 09:45 (Mag-Ox) 800 mg UNSCH PRN PO 04/24/17 09:45 Magnesium Sulfate 2 gm/Sodium Chloride 100 ml @ 50 mls/hr UNSCH PRN IV 04/24/17 09:45 UNV (K-Phos) 2,000 mg Q4H PRN PO 04/24/17 09:45 Sodium Phosphate 30 mmol/Sodium Chloride 250 ml @ 42 mls/hr UNSCH PRN IV 04/24/17 09:45 UNV (K-Phos) 2,000 mg UNSCH PRN PO/TUBE 04/24/17 09:45 UNV Potassium Phosphate 30 mmol/ Sodium Chloride 260 ml @ 42 mls/hr UNSCH PRN IV 04/24/17 09:45 UNV Family History Reported Medications Reported Meds & Active Scripts Marfan's syndrome Social History Denies any tobacco alcohol or illicits Physical Exam Vital Signs Vital Signs Date Time Temp Pulse Resp B/P (MAP) Pulse Ox O2 Delivery O2 Flow Rate FiO2 04/24/17 09:30 98 Nasal Cannula 2.00 04/24/17 08:22 100 2.00 04/24/17 08:21 100 Nasal Cannula 2.00 04/24/17 03:33 96.1 68 20 108/69 (82) 93 04/24/17 00:28 98 2.00 04/24/17 00:28 98 Nasal Cannula 2.00 04/23/17 23:45 98.5 73 17 112/71 (85) 97 04/23/17 23:00 98 04/23/17 22:05 18 04/23/17 20:51 98.4 74 16 131/80 (97) 98 04/23/17 20:00 98 04/23/17 19:45 04/23/17 19:00 83 18 127/78 (94) 98 Room Air 04/23/17 18:00 77 20 132/76 (94) 98 Room Air 04/23/17 17:00 20 04/23/17 16:56 138/88 (105) 136/81 (99) 04/23/17 16:36 20 98 Room Air 04/23/17 16:15 98.3 92 20 132/88 (103) 100 Physical Exam GENERAL: Well-nourished, well-developed patient. SKIN: Warm and dry. HEAD: Normocephalic. EYES: No scleral icterus. No injection or drainage. NECK: Supple, trachea midline. No JVD or lymphadenopathy. CARDIOVASCULAR: Regular rate and rhythm without murmurs, gallops, or rubs. RESPIRATORY: Breath sounds equal bilaterally. No accessory muscle use. GASTROINTESTINAL: Abdomen soft, non-tender, nondistended. EXTREMITIES: No cyanosis, or ++edema right leg NEUROLOGICAL: Awake, alert, and oriented x 3. Non-focal. Laboratory Laboratory Tests Test 04/23/17 16:45 04/23/17 19:25 04/23/17 20:10 04/24/17 01:20 White Blood Count 9.8 Red Blood Count 4.73 Hemoglobin 14.8 Hematocrit 42.9 Mean Corpuscular Volume 90.7 Mean Corpuscular Hemoglobin 31.4 Mean Corpuscular Hemoglobin Concent 34.6 Red Cell Distribution Width 14.0 Platelet Count 252 Mean Platelet Volume 7.5 Neutrophils (%) (Auto) 72.2 Lymphocytes (%) (Auto) 18.9 Monocytes (%) (Auto) 7.6 Eosinophils (%) (Auto) 0.7 Basophils (%) (Auto) 0.6 Neutrophils # (Auto) 7.1 Lymphocytes # (Auto) 1.8 Monocytes # (Auto) 0.7 Eosinophils # (Auto) 0.1 Basophils # (Auto) 0.1 CBC Comment DIFF FINAL Differential Comment Prothrombin Time 10.7 Prothromb Time International Ratio 1.0 Activated Partial Thromboplast Time 28.3 Blood Urea Nitrogen 14 Creatinine 0.85 Random Glucose 93 Total Protein 7.6 Albumin 3.7 Calcium Level 9.2 Magnesium Level 2.1 2.3 Alkaline Phosphatase 72 Aspartate Amino Transf (AST/SGOT) 14 Alanine Aminotransferase (ALT/SGPT) 17 Total Bilirubin 0.3 Sodium Level 138 Potassium Level 3.6 Chloride Level 105 Carbon Dioxide Level 25.4 Anion Gap 8 Estimat Glomerular Filtration Rate 106 Total Creatine Kinase 75 72 70 Troponin I LESS THAN 0.02 LESS THAN 0.02 LESS THAN 0.02 B-Type Natriuretic Peptide 40 Lipase 192 Valproic Acid (Depakene) Level 7 Urine Color YELLOW Urine Turbidity CLEAR Urine pH 6.0 Urine Specific [place] 1.020 Urine Protein NEG Urine Glucose (UA) NEG Urine Ketones NEG Urine Occult Blood NEG Urine Nitrite NEG Urine Bilirubin NEG Urine Urobilinogen 2.0 Urine Leukocyte Esterase NEG Urine RBC LESS THAN 1 Urine WBC LESS THAN 1 Microscopic Urinalysis Comment CULT NOT INDICATED Test 04/24/17 08:17 04/24/17 09:00 White Blood Count 7.3 Red Blood Count 4.46 Hemoglobin 14.0 Hematocrit 40.6 Mean Corpuscular Volume 91.0 Mean Corpuscular Hemoglobin 31.4 Mean Corpuscular Hemoglobin Concent 34.5 Red Cell Distribution Width 14.3 Platelet Count 232 Mean Platelet Volume 7.3 Neutrophils (%) (Auto) 58.2 Lymphocytes (%) (Auto) 27.1 Monocytes (%) (Auto) 12.7 Eosinophils (%) (Auto) 1.4 Basophils (%) (Auto) 0.6 Neutrophils # (Auto) 4.2 Lymphocytes # (Auto) 2.0 Monocytes # (Auto) 0.9 Eosinophils # (Auto) 0.1 Basophils # (Auto) 0.0 CBC Comment DIFF FINAL Differential Comment Blood Urea Nitrogen 13 Creatinine 0.94 Random Glucose 86 Total Protein 6.9 Albumin 3.3 Calcium Level 8.7 Phosphorus Level 4.0 Magnesium Level 2.2 Alkaline Phosphatase 63 Aspartate Amino Transf (AST/SGOT) 9 Alanine Aminotransferase (ALT/SGPT) 14 Total Bilirubin 0.3 Sodium Level 139 Potassium Level 4.1 Chloride Level 104 Carbon Dioxide Level 26.2 Anion Gap 9 Estimat Glomerular Filtration Rate 114 Triglycerides Level 130 Cholesterol Level 203 LDL Cholesterol 137 HDL Cholesterol 40.5 Cholesterol/HDL Ratio 5.01 Free Thyroxine 1.19 Thyroid Stimulating Hormone 3rd Gen 3.110 Result Diagram: 04/24/17 0817 04/24/17 0817 Imaging Last Impressions Chest X-Ray 04/23/17 1620 Signed Impressions: Service Date/Time: Sunday, April 23, 2017 16:38 - CONCLUSION: 1. No acute cardiopulmonary disease. Marlon Soliz MD Lower Extremity Ultrasound 04/23/17 0000 Signed Impressions: Service Date/Time: Sunday, April 23, 2017 17:07 - CONCLUSION: 1. No evidence of deep venous thrombosis. Marlon Soliz MD Assessment and Plan Problem List: (1) Chest pain ICD Codes: R07.9 - Chest pain, unspecified Status: Acute Plan: 31-year-old M with a complex cardiac history admitted with atypical chest pain and pseudoseizures. He had a recent unremarkable coronary angiogram done a . Cardiac markers and EKG unremarkable for ischemia. Patient refuses nitroglycerin or Tylenol for pain says the only thing that takes the pain away is Dilaudid. CAD unlikely given recently negative LHC, negative troponin and unremarkable EKG. ?Dissection. Multiple CT in the past. He had ahd similar presentation in [facility] with same complaints with unremarkable results. Recommendations: 1. Chest CTA to r/o Dissection 2. Pain and BP control 3. 2Dechocardiogram 4. Continue cardiac home medications Thank you for the opportunity to take part of the care oft his patient Case discussed with hospitalist and Application Lead (2) Seizure disorder ICD Codes: G40.909 - Epilepsy, unspecified, not intractable, without status epilepticus Problem Qualifiers (1) Chest pain: Qualified Codes: R07.9 - Chest pain, unspecified Smith Whiteside MD Apr 24, 2017 11:24
[2017-04-24] MEDS ORDERED: ACETAMINOPHEN 1000 MG/100 ML 100 ML IV PRN (11:30)
[2017-04-24] MEDS ORDERED: ONDANSETRON HCL 4 MG/2 ML VIAL IV PUSH PRN (12:00)
[2017-04-24] MEDS ORDERED: BISACODYL 10 MG SUPP RECTAL PRN (12:00)
[2017-04-24] MEDS: SODIUM CHLOR 0.9% 1000 ML INJ 1,000 ML IV SCH (12:00)
[2017-04-24] MEDS ORDERED: MAGNESIUM HYDROXIDE SUSP 30 ML CUP PO PRN (12:00)
[2017-04-24] MEDS ORDERED: RESP: ALBUTEROL 2.5 MG/IPRATROPIUM 0.5 MG NEB (PRN) INH (12:00)
--- NOTE | 2017-04-24 12:06 | MB ---
cc: LEROY MARCIAL DATE OF CONSULTATION: 04/24/2017 HISTORY OF PRESENT ILLNESS A 31-year-old right-handed man with hypertension, five MIs, CABG, atrial fibrillation, but says he cannot be on any blood thinners due to allergy to aspirin and because of seizures if he falls and hits his head. 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 He says he has seizures every other day. He does not have any warning, evidently falls to the ground. He has been on Topamax, Keppra, Dilantin, Tegretol and Vimpat in the past, none of them work. He is currently on Depakote 2000 mg b.i.d. PAST MEDICAL HISTORY There is a history of pseudoseizures documented from [facility], valve sparing aortic root replacement in the past 2008, aortic valve repair, ascending aortic replacement, paroxysmal atrial fibrillation, cardiac arrest/ventricular fibrillation in 2013. Baseline blindness, left eye. Chronic lymphedema of the right lower extremity. [facility] notes history of pseudoseizure and conversion disorder. He was evidently somewhat narcotic seeking up at [facility]. He has a history of obsessive-compulsive disorder, Tourette's disease, cervical fusion spine surgery. 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 He had what was described as some seizures. This morning I was told he was unconscious twice and got Ativan twice. SOCIAL HISTORY He is not a smoker or a drinker, although he used to smoke. He is . Student of the [employer] in [place]. Lives with his and child. FAMILY HISTORY Positive stroke in his mother. MEDICATIONS In the past he has been on Betapace, omeprazole, Neurontin 400 t.i.d., Depakote 1000 twice a day, Cymbalta 60 a day, inhaler, Fioricet, Flexeril. He has a note from December 2016 from [facility] that he has pseudoseizures confirmed by neurology in 2011. He had an EEG done in October of this year. Very well known to neurology for multiple studies and nonepileptic seizures. He had an episode where he woke up near the end of the study and shook his head from [id number], did not respond to instructions to vocalize. A normal EEG was noted. It was felt to be a non-epileptiform spell. No seizures have been recorded despite numerous attempts over the last 7-10 years according to neurology. MEDICATIONS Current medications: 1. Pepcid. 2. Tylenol. 3. Subcu heparin. 4. 325 aspirin. 5. Cymbalta, 60 a day. 6. Ativan p.r.n. 7. Depakote ER 2000, b.i.d. 8. Gabapentin 400, b.i.d. 9. Betapace. PHYSICAL EXAMINATION VITAL SIGNS: On exam he is afebrile, sinus rhythm, 68, 20, 108/89. NECK: There are no carotid bruits. HEART: Regular rate and rhythm. I do not detect a mumur. NEUROLOGIC: He had a left eye patch. Right eye visual browning are full. Pupils are equal. Face is symmetric. Tongue is midline. Normal strength in upper and lower extremities bilaterally. Toes withdraw bilaterally. DTRs are slightly hyperreflexic on bilateral knee jerks, not in the arms. Tone was normal. There is no ankle clonus. Pinprick he said he could not feel in his face or his arms bilaterally, or really anywhere in his body. He is not ataxic on [id number]-ur-heth. Speech is fluent. He is not aphasic. LABORATORY CBC is normal. Depakote level 7. UA negative. Basic metabolic profile normal. CPK and troponin normal. LDL cholesterol 137. Thyroid normal. EEG EEG is pending. IMAGING Chest x-ray is negative. Lower extremity ultrasound is negative for DVT. IMPRESSION History of pseudoseizures and conversion disorder. It is possible that he has not been taking his Depakote with a low level at such a high dose. RECOMMENDATIONS Will continue him on his current medication. I would not treat his seizures as seizures at this point. Will see with the EEG looks like, but I suspect it will be negative and he could be okay to be discharged neurologically when cleared by the med team. I would recommend not treating any episodes that look like seizures with Ativan at this time. Consider having psychiatry see him. I would not recommend any narcotics either. MD TORY Holloway/HARVEY /11:04 AM /11:39 AM
[2017-04-24] MEDS: HEPARIN SODIUM - SQ 10,000 UNITS/ML VIAL SQ SCH (14:00)
--- NOTE | 2017-04-24 15:07 | OTSOAPIP ---
TIME SESSION COMPLETED: AM X2 TREATMENT TIME: 0 MINS. CHART REVIEWED. INTERDISCIPLINARY COMMUNICATION: ATTEMPTED X2, FIRST WITH NURSING AND 2ND TIME HAVING AN EEG AT BEDSIDE PLAN: WILL SEE PATIENT WHEN ABLE OR NEXT TREATMENT DAY Therapist: SANDER ROGERS/Tatyana Signature on file
[2017-04-24 15:36] LABS: HEMOGLOBIN A1a 1.2 %; HEMOGLOBIN A1b 0.8 %; HEMOGLOBIN F 1.4 %; HEMOGLOBIN LA1C 1.6 %; HEMOGLOBIN P3 3.2 %
--- NOTE | 2017-04-24 17:44 | ECHRPT ---
Indication: cp CONCLUSIONS The left ventricular systolic function is ebnpnwrn-[id number]-vutvcuq reduced with an estimated ejection fra ction in the range of 40-45%. Normal left ventricular size. Mild concentric left ventricular hypertrophy. Myxomatous mitral valve. Interior mitral valve leaflet prolapse. Mild mitral valve regurgitation. Trace aortic valve regurgitation. There is mild tricuspid valve regurgitation. The estimated pulmonary arterial pressure is 41.6 mmHg. AICD lead in the right ventricle No pericardial effusion BP: / HR: Rhythm: MEASUREMENTS (Male / Female) Normal Values Technical Quality:Good 2D ECHO LV Diastolic Diameter PLAX 4.9 cm 4.2 - 5.9 / 3.9 - 5.3 cm LV Systolic Diameter PLAX 4.3 cm IVS Diastolic Thickness 1.3 cm 0.6 - 1.0 / 0.6 - 0.9 cm LVPW Diastolic Thickness 1.3 cm 0.6 - 1.0 / 0.6 - 0.9 cm LV Relative Wall Thickness 0.5 RV Internal Dim ED PLAX 1.9 cm LVOT Diameter 2.3 cm M-MODE Aortic Root Diameter MM 2.8 cm LA Systolic Diameter MM 3.0 cm LA Ao Ratio MM 1.1 AV Cusp Separation MM 1.8 cm DOPPLER AV Peak Velocity 259.0 cm/s AV Peak Gradient 26.8 mmHg AV Mean Gradient 15.0 mmHg AV Velocity Time Integral 60.2 cm LVOT Peak Velocity 52.6 cm/s LVOT Peak Gradient 1.1 mmHg LVOT Velocity Time Integral 14.4 cm AV Area Cont Eq vti 1.0 cm AV Area Cont Eq pk 0.8 cm TR Peak Velocity 281.0 cm/s TR Peak Gradient 31.6 mmHg Right Atrial Pressure 10.0 mmHg Pulmonary Artery Systolic Pressu 41.6 mmHg Right Ventricular Systolic Press 41.6 mmHg FINDINGS LEFT VENTRICLE The left ventricular systolic function is wyrcqhlo-ag-bufwolv reduced with an estimated ejection fra ction in the range of 35-40%. Normal left ventricular size. Mild concentric left ventricular hypertrophy. RIGHT VENTRICLE Normal right ventricular size and systolic function. LEFT ATRIUM The left atrial size is normal. RIGHT ATRIUM The right atrial size is normal. ATRIAL SEPTUM Normal atrial septal thickness without atrial level shunting by limited color doppler interrogation. AORTA The aortic root and proximal ascending aorta are normal in size on limited imaging. MITRAL VALVE Myxomatous mitral valve. nterior mitral valve leaflet prolapse. Mild mitral valve regurgitation. AORTIC VALVE Trace aortic valve regurgitation. Aortic valve area is 0.99 cm. Aortic valve mean gradient is 15 mmHg. TRICUSPID VALVE Structurally normal tricuspid valve. There is mild tricuspid valve regurgitation. The estimated pulmonary arterial pressure is 41.6 mmHg. PULMONARY VALVE No pulmonary valve regurgitation or stenosis. VESSELS The inferior vena cava is normal in size. PERICARDIUM No pericardial effusion. Smith Whiteside MD (Electronically Signed) Final Date:24 April 2017 17:43
[2017-04-24] MEDS: FAMOTIDINE 20 MG/2 ML VIAL IV PUSH SCH (21:49)
--- NOTE | 2017-04-24 22:06 | EKG ---
Date Performed: 04/24/2017 Time Performed: 01:57:08 PTAGE: 31 years EKG: Sinus rhythm LEFT ATRIAL ENLARGEMENT INCOMPLETE RIGHT BUNDLE BRANCH BLOCK ST DEVIATION AND MODERATE T-WAVE ABNORM ALITY ABNORMAL ECG PREVIOUS TRACING : 04/23/2017 19.28 Compared to prior tracing no significant change DOCTOR: Kameron Milian Interpretating Date/Time 04/24/2017 22:04:12
--- NOTE | 2017-04-24 22:40 | EKG ---
Date Performed: 04/23/2017 Time Performed: 19:28:17 PTAGE: 31 years EKG: Sinus rhythm POSSIBLE LEFT ATRIAL ENLARGEMENT POSSIBLE LEFT VENTRICULAR HYPERTROPHY MODERATE ST DEPRESSION ABNORM AL ECG PREVIOUS TRACING : 04/23/2017 16.34 Compared to prior tracing no significant change DOCTOR: Kameron Milian Interpretating Date/Time 04/24/2017 22:38:21
--- NOTE | 2017-04-24 22:56 | EKG ---
Date Performed: 04/23/2017 Time Performed: 16:34:55 PTAGE: 31 years EKG: Sinus rhythm LEFT ATRIAL ENLARGEMENT INCOMPLETE RIGHT BUNDLE BRANCH BLOCK POSSIBLE LEFT VENTRICULAR HYPERTROPHY N ONSPECIFIC ST & T-WAVE ABNORMALITY ABNORMAL ECG NO PREVIOUS TRACING DOCTOR: Kameron Milian Interpretating Date/Time 04/24/2017 22:50:34
[2017-04-25] MEDS: HEPARIN SODIUM - SQ 10,000 UNITS/ML VIAL SQ SCH (01:14)
[2017-04-25] MEDS: SODIUM CHLOR 0.9% 1000 ML INJ 1,000 ML IV SCH (01:15)
[2017-04-25 04:00] VITALS: BP 190/82; PULSE 64; PULSE 70; RESP 16; TEMP 97.5; O2SAT 18; O2SAT 95
[2017-04-25] MEDS ORDERED: CHLORHEXIDINE GLUCONATE 2 % 1 PACK (2 CLOTHS) TOP SCH (04:00)
[2017-04-25] MEDS ORDERED: CHLORHEXIDINE GLUCONATE 2 % 1 PACK (2 CLOTHS)(taper/protocol) TOPICAL SCH (04:00)
--- NOTE | 2017-04-25 05:40 | MG ---
cc: MIRIAM SWEET Lab No: Date: 04/24/2017 Age: 21 Sex: M Race: DATE OF [address] Hernandes MEDICAL HISTORY Admitted to the hospital for left-sided pain that radiates down the left arm. History of cardiomyopathy, Marfan's syndrome, MA status post CABG, cervical fusion, chronic lymphedema of right lower extremity, DVT, seizures, blind in left eye. MEDICATIONS 1. Ativan. 2. Depakote. 3. Lasix. 4. Gabapentin. 5. Sotalol. 6. Percocet. DESCRIPTION The background activity is 8-9 Hz alpha, bilateral and symmetrical, superimposed by excess beta activity. Hyperventilation was omitted. There is excessive muscle, movement and artifact during the recording. Intermittently there was slowing of the background, then transitioned to sleep. There were no electrographic seizures or epileptiform discharges noted. INTERPRETATION This is an awake and asleep EEG. Excessive beta activity is noticed. Excess beta activity is a nonspecific finding that may be related to medication adverse effects such as benzos and barbiturates. The absence of electrographic seizures or epileptiform discharges does not exclude diagnosis of epilepsy. Clinical correlation is recommended. MD JOANA Ontiveros/RADHA /8:43 PM /5:30 AM MTDLillie
[2017-04-25 05:51] VITALS: O2SAT 97
[2017-04-25 08:33] VITALS: BP 113/61; PULSE 77; RESP 20; TEMP 97.8; O2SAT 97
[2017-04-25] MEDS: SODIUM CHLORIDE 0.9% FLUSH 10 ML FLUSH IV FLUSH SCH (09:00)
[2017-04-25] MEDS: FUROSEMIDE 40 MG TAB PO SCH (09:00)
[2017-04-25] MEDS: ERGOCALCIFEROL 5000 UNIT PO SCH (09:00)
[2017-04-25] MEDS: FLUTICASONE PROPIONATE 44 MCG/ACT 10.6 GM INHALER INH SCH (09:04)
[2017-04-25] MEDS: FAMOTIDINE 20 MG/2 ML VIAL IV PUSH SCH (09:04)
[2017-04-25] MEDS: GABAPENTIN 400 MG CAP PO SCH (09:05)
[2017-04-25] MEDS: DOCUSATE SODIUM 50 MG/SENNA 8.6 MG TAB PO SCH (09:05)
[2017-04-25] MEDS: DULoxetine HCl DR 60 MG CAP PO SCH (09:05)
[2017-04-25] MEDS: DIVALPROEX SODIUM E.R. 500 MG TAB PO SCH (09:06)
[2017-04-25] MEDS ORDERED: predniSONE 50 MG TAB PO ONE (10:00)
[2017-04-25] MEDS ORDERED: diphenhydrAMINE HCL 50 MG CAP PO ONE ×2 (10:00)
[2017-04-25] MEDS ORDERED: predniSONE 50 MG TAB PO SCH (10:00)
[2017-04-25 12:00] VITALS: PULSE 81
[2017-04-25 12:22] VITALS: BP 104/68; PULSE 80; RESP 20; TEMP 98.4; O2SAT 96
[2017-04-25] MEDS: SOTALOL HCL 80 MG TAB PO SCH (12:24)
--- NOTE | 2017-04-25 13:03 | HHI.FF ---
Face to Face Verification Diagnosis: (1) Seizure disorder (2) Chest pain (3) Generalized weakness Physical Therapy Order: Evaluate and Treat Home Health Nursing Order: Nursing assessment with vital signs Instructions: home health for medication management I have seen patient Sami HansonJr on 04/25/17. My clinical findings support the need for the requested home health care services because: Med compliance is questionable I certify that my clinical findings support that this patient is homebound because: Unsafe to leave home unassisted Herrera Herr MD Apr 25, 2017 13:03
[2017-04-25] MEDS ORDERED: WALKER WHEELS/F1 MIS ×2 (13:04→15:14)
--- NOTE | 2017-04-25 14:30 | HHI.DS ---
Discharge Summary Admission Date Apr 24, 2017 at 08:30 Discharge Date: Apr 25, 2017 Admitting Diagnosis chest pain (1) Chest pain ICD Code: R07.9 - Chest pain, unspecified Diagnosis: Principal Status: Acute (2) Seizure disorder ICD Code: G40.909 - Epilepsy, unspecified, not intractable, without status epilepticus Diagnosis: Secondary (3) Pseudoseizures ICD Code: F44.5 - Conversion disorder with seizures or convulsions Procedures No invasive procedures. Please see echocardiogram report. Brief History - From Admission Patient is a 31-year-old gentleman. He presented to the emergency room for evaluation of left-sided chest pain that radiated down his left arm. Patient reported significant history including VT 5, 3 open heart surgeries, cervical fusion, chronic lymphedema of the right lower extremity. He also reports history of DVT to the right lower extremity and seizure disorder. Patient also has history of Marfan syndrome. He is also legally blind in his left eye. Once EMS arrived for evaluation of his left-sided chest pain he then proceeded to have 2 seizures. Has a history of epilepsy and has multiple seizures. 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 Patient states the pain is a pressure and sharp. It was 10 out of 10 states he cannot take aspirin and is allergic to not on any anticoagulants due to seizure.. Patient states the swelling to the right lower extremity is worse than normal. Patient states his last myocardial infarction was February 2014. Does state he had a cardiac catheterization 3 months ago at [facility] CBC/BMP: 04/24/17 0817 04/24/17 0817 Significant Findings Laboratory Tests Test 04/23/17 16:45 04/23/17 19:25 04/23/17 20:10 04/24/17 01:20 Neutrophils (%) (Auto) 72.2 % (16.0-70.0) Aspartate Amino Transf (AST/SGOT) 14 U/L (15-37) Troponin I LESS THAN 0.02 NG/ML LESS THAN 0.02 NG/ML LESS THAN 0.02 NG/ML Valproic Acid (Depakene) Level 7 MCG/ML (50-100) Test 04/24/17 07:08 04/24/17 08:17 04/24/17 09:00 04/24/17 11:39 Urine Opiates Screen POS (NEG) Red Blood Count 4.46 MIL/MM3 (4.50-5.90) Monocytes (%) (Auto) 12.7 % (0.0-8.0) Albumin 3.3 GM/DL (3.4-5.0) Aspartate Amino Transf (AST/SGOT) 9 U/L (15-37) Cholesterol Level 203 MG/DL (120-200) LDL Cholesterol 137 MG/DL (0-99) Imaging Last Impressions Chest X-Ray 04/23/17 1620 Signed Impressions: Service Date/Time: Sunday, April 23, 2017 16:38 - CONCLUSION: 1. No acute cardiopulmonary disease. Marlon Soliz MD Lower Extremity Ultrasound 04/23/17 0000 Signed Impressions: Service Date/Time: Sunday, April 23, 2017 17:07 - CONCLUSION: 1. No evidence of deep venous thrombosis. Marlon Soliz MD PE at Discharge GENERAL: Patient lying in bed. Appears comfortable. Alert and oriented 3. SKIN: Warm and dry. HEAD: Normocephalic. EYES: No scleral icterus. No injection or drainage. NECK: Supple, trachea midline. No JVD. CARDIOVASCULAR: Regular rate and rhythm without murmurs, gallops, or rubs. RESPIRATORY: Breath sounds equal bilaterally. No accessory muscle use. GASTROINTESTINAL: Abdomen soft, non-tender, nondistended. MUSCULOSKELETAL: No cyanosis. Right lower extremity edema. No erythema. No broken skin. BACK: Nontender without obvious deformity. No CVA tenderness. Hospital Course Patient admitted with chest pain. EKGs sinus rhythm and troponins negative 3. Cardiology consulted. Echocardiogram performed. Extensive workup with multiple previous hospitalizations at [facility]. The patient has had multiple recent hospital admissions for pseudoseizures versus seizures and chest pain/ chronic pain.06/2016, and 07/2016,10/2016,12/2016,03/2017x 3 admissions, last admission in 03/20/2017. echocardiogram ejection fraction 40-45%. Cardiology and initially recommended a CT angiogram to rule out dissection, however patient has a severe allergy to IV contrast. Upon viewing echocardiogram, Cardiology has cleared the patient for discharge. Patioent is advised to followup with his primary tassel clipper and inform him of echocardiogram performed here. patient conveys understanding. While in observation, patient experienced a seizure like episode, for which neurology was consulted. This was found to be most likely a pseudoseizure. EEG negative. Critical care was consulted, however intubation was not necessary. Right leg edematous. Ultrasound negative for DVT. This is a chronic finding. Patient will discharge home, follow with primary care, primary tassel clipper, primary neurologist. Pt Condition on Discharge: Good Discharge Disposition: Discharge Home Discharge Time: > 30 minutes Discharge Instructions DIET: Follow Instructions for: As Tolerated, No Restrictions Activities you can perform: Regular-No Restrictions, See Additionl Instruction Activities to Avoid: Driving Follow up Referrals: Cardiology - 1 Week Neurology - 1 Week PCP Follow-up - 1 Week New Medications: Walker with Front Wheels (Walker with Front Wheels) 1 Mis Mis EA .ROUTE DIRECTED, #1 0 Refills Continued Medications: Albuterol 18 GM Inh (Ventolin Hfa 18 GM Inh) 90 Mcg/Act Aer 2 PUFF INH Q4H PRN for SHORTNESS OF BREATH, INHALER 0 Refills Divalproex ER (Depakote ER) 500 Mg Kirill 2000 MG PO BID for Control Seizures, TAB [address] (Cymbalta DR) 60 Mg Capdr 60 MG PO DAILY, CAP 0 Refills Ergocalciferol (Vitamin D2) 2,000 Unit Tab 5000 UNITS PO DAILY for Nutritional Supplement, TAB 0 Refills Fluticasone 10.6 GM Inh (Flovent Hfa 10.6 GM Inh) 44 Mcg/Act Inh 2 PUFF INH BID for Asthma Management, INHALER 0 Refills Use daily at the same time. Furosemide (Lasix) 40 Mg Tab 40 MG PO BID, TAB 0 Refills Gabapentin (Neurontin) 400 Mg Cap 400 MG PO BID, CAP 0 Refills Omeprazole Magnesium (Prilosec) 20 Mg Tab 1 TAB PO DAILY Sotalol (Sotalol) 120 Mg Tab 120 MG PO BID for Regulate Heart Beat, TAB 0 Refills Herrera Herr MD Apr 25, 2017 14:30
== END 2017-04-25 19:04 | disposition home or self-care (01) | DRG 313 ==
LOC: EDBD 15:59 → NEPE 15:59 → NEDA 18:09 → NEPFCDU 20:34 → OBSVTOIN 04-24 08:30 → HIMN 04-24 08:30 → N05B 04-24 14:35
PROVIDERS: ADMIT Internal Medicine; ATTEND Internal Medicine
DX: R07.89 Other chest pain (principal); I25.2 Old myocardial infarction; I42.9 Cardiomyopathy, unspecified; Q87.40 Marfan syndrome, unspecified; G62.9 Polyneuropathy, unspecified; M41.9 Scoliosis, unspecified; I69.354 Hemiplegia and hemiparesis following cerebral infarction affecting left non-dominant side; I10 Essential (primary) hypertension; I48.0 Paroxysmal atrial fibrillation; F32.9 Major depressive disorder, single episode, unspecified; F95.2 Tourette's disorder; G40.909 Epilepsy, unspecified, not intractable, without status epilepticus; F42.9 Obsessive-compulsive disorder, unspecified; G89.4 Chronic pain syndrome; I34.0 Nonrheumatic mitral (valve) insufficiency; I35.1 Nonrheumatic aortic (valve) insufficiency; I89.0 Lymphedema, not elsewhere classified; J45.909 Unspecified asthma, uncomplicated; K21.9 Gastro-esophageal reflux disease without esophagitis; H54.8 Legal blindness, as defined in USA; F43.10 Post-traumatic stress disorder, unspecified; Z86.718 Personal history of other venous thrombosis and embolism; Z86.74 Personal history of sudden cardiac arrest; Z87.891 Personal history of nicotine dependence; Z95.0 Presence of cardiac pacemaker; Z95.3 Presence of xenogenic heart valve; Z98.1 Arthrodesis status
CPT/HCPCS: 71010; 80053; 80061; 80164; 80307; 81001; 82550; 83036; 83690; 83735; 83880; 84100; 84439; 84443; 84484; 85025; 85610; 85730; 87641; 93005; 93306; 93971; 95819; 96374; 96375; 96376; G0378; J1644; J2060; J2270; J2405; J7030